=== PATIENT | male | born 1970 | race Caucasian/White ===

== ENCOUNTER 2021-01-13 11:53 | Emergency (ER) | payer OTHER, SELFPAY ==
--- NOTE | 2021-01-13 12:00 | USCV_ITS ---
Stanford Rouse Age: 50 Gender: M : 1970 Exam Date: 01/13/2021 12:12 Ordering Phys: Roma Bowman Technologist: Perla Alvarez Exam Location: [facility] [place] Indication: HIGH D-DIMER AND CRAMPS IN LT LEG HISTORY: High D-Dimer PROCEDURES: Venous duplex imaging was performed in only the left lower extremity. The following venous structures were evaluated: common femoral vein, profunda vein, proximal portion of the greater saphenous vein, superficial femoral vein, and the popliteal vein. In addition, the posterior tibial and peroneal trunk were evaluated. Serial compression, augmentation maneuvers, and spectral Doppler flow evaluation were performed. FINDINGS: Normal 2-D Doppler and augmentation and compressibility throughout the lower extremity venous structures. Additional imaging through the proximal calf veins also reveals no thrombus. Limited evaluation of the greater saphenous vein is patent with no thrombus.. CONCLUSIONS No evidence of left lower extremity DVT. Julian Waller MD (Electronically Signed) Final Date: 13 January 2021 17:44 S
[2021-01-13 12:47] VITALS: BP 132/76; PULSE 69; RESP 19; TEMP 37.3; O2SAT 95; BMI 34.0
[2021-01-13 13:42] LABS: Basophils # 0.1 10^3/uL (0.0-0.1); Basophils % 0.5 %; Eosinophils # 0.3 10^3/uL (0.0-0.8); Eosinophils % 3.6 %; Hematocrit 50.7 % (42.0-52.0); Hemoglobin 16.8 g/dL (11.7-16.6); Lymphocytes # 3.2 10^3/uL (0.8-4.8); Lymphocytes % 33.4 %; Mean Corpuscular HGB Conc 33.1 g/dL (30.0-36.0); Mean Corpuscular Hemoglobin 30.9 pg (28.0-34.0); Mean Corpuscular Volume 93.2 fL (80-94); Mean Platelet Volume 11.1 fL (7.4-10.4); Monocytes # 0.7 10^3/uL (0.2-0.9); Monocytes % 7.4 %; Neutrophils # 5.19 10^3/uL (1.8-7.7); Neutrophils % 54.8 %; Nucleated Red Blood Cells % 0 %; Platelet Count 276 10^3/cmm (130-400); Red Blood Count 5.44 10^6/uL (4.1-5.3); Red Cell Distribution Width 13.6 % (12.1-15.1); White Blood Count 9.5 10^3/uL (4.0-10.0)
[2021-01-13 13:47] LABS: INR 0.94 (0.8-1.2); Partial Thromboplastin Time 33.6 SECONDS (23.9-36.7)
[2021-01-13 14:01] LABS: Alanine Aminotransferase 38 U/L (0-41); Albumin Level 4.3 g/dL (3.5-5.2); Alkaline Phosphatase 95 IU/L (40-130); Aspartate Amino Transferase 23 U/L (0-40); Blood Urea Nitrogen 12 mg/dL (6-20); Calcium 8.6 mg/dL (8.5-10.5); Carbon Dioxide 19 mmol/L (22-29); Chloride 106 mmol/L (98-107); Globulin 3.2 g/dL (1.3-4.6); Glomerular Filtration Rate 143.2 mL/min (90-130); Glucose 90 mg/dL (65-115); Osmolality Calculated 283 mOsm/kg (285-295); Sodium 137 mmol/L (136-145); Total Bilirubin 0.3 mg/dL (0.15-1.2); Total Protein 7.5 g/dL (6.6-8.7)
[2021-01-13 14:09] LABS: Anion Gap 16.5 (5-19); Potassium 4.5 mmol/L (3.5-5.1)
--- NOTE | 2021-01-13 23:49 | ECG_ITS ---
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 Measurements Intervals [place] Rate: 55 P: 53 NV: 168 QRS: 45 QRSD: 93 T: 31 QT: 416 QTc: 401 Interpretive Statements SINUS BRADYCARDIA Compared to ECG 01/17/2015 04:54:34 Sinus rhythm no longer present Electronically Signed On 01-16-2021 7:45:48 CDT by Lexy Chatterjee M.D. [id number]
--- NOTE | 2021-01-13 23:50 | ED_ITS ---
HPI - SOB/Dyspnea General: Chief Complaint: Shortness of Breath/Dyspnea Stated Complaint: L leg pain, sob, Poss clot Time Seen by Provider: 01/13/21 23:39 History of Present Illness: HPI Narrative: Patient is a 50-year-old male comes to the ED due to an elevated D-dimer lab. Patient says infectious disease doctor who is been managing his [place] spotted fever disease checked a D-dimer level on him about a week ago and results showed it was elevated at 0.92. His doctor told him to go to the ED to be evaluated. Patient was complaining of just some mild left leg pain but has no other acute symptoms. He has chronic shortness of breath and says it has not gotten any worse or changed at all. The main reason patient came today was because of his elevated D-dimer. Patient is fully vaccinated for COVID-19, but he would like to be tested. Denies any fever, chills, chest pain, abdominal pain, nausea/vomiting, bladder or bowel symptoms. Associated symptoms: Deny abdominal pain, chest pain, fever(s), nausea, orthopnea, palpitations or vomiting Review of Systems Const: Denies: fever(s), chills or fatigue Eyes: Denies: change in vision or eye discomfort ENMT: Denies: throat pain, odynophagia, nasal discharge or nasal congestion Card: Denies: chest pain, palpitations, edema, swelling of feet/ankles, dyspnea on exertion or orthopnea Resp: Reports: dyspnea (chronic); Denies: productive cough or non-productive cough GI: Denies: abdominal pain, nausea, vomiting, diarrhea, constipation or hematochezia : Denies: flank pain, difficulty urinating, dysuria or hematuria Musc: Denies: neck pain, back pain or extremity swelling Skin/Breast: Denies: rash or new lesions Neuro: Denies: headache(s), numbness in extremities or weakness in extremities Physical Exam Const: COMMON NORMALS: no acute distress, patient oriented x3 and alert GENERAL APPEARANCE: cooperative and comfortable HENMT: COMMON NORMALS: normocephalic HEAD & SCALP: normocephalic MOUTH: Normal oral and palatal mucosa present THROAT: posterior oropharynx normal and uvula midline Eye: COMMON NORMALS: Equal, round and reactive pupils present PUPIL: Yes Equal, round and reactive pupils present Neck/C-Spine: COMMON NORMALS: supple GENERAL: Yes normal visual inspection Resp: COMMON NORMALS: normal respiratory effort, No retractions, No use of accessory muscles and clear to auscultation bilaterally EFFORT & INSPECTION: Yes able to speak in complete sentences, No tachypneic, No respiratory distress and No labored AUSCULTATION: clear to auscultation bilaterally Cardio: COMMON NORMALS: regular rate, regular rhythm, S1 normal heart sound present, S2 normal heart sound present, No gallops present (Cardio), No clicks present (Cardio), No murmurs present (Cardio) and Peripheral pulses 2+ throughout RATE: regular rate RHYTHM: regular rhythm HEART SOUNDS: S1 normal heart sound present and S2 normal heart sound present PERIPHERAL PULSES: Peripheral pulses 2+ throughout GI: COMMON NORMALS: Normal to inspection, nondistended, normoactive bowel sounds present, Soft to palpation, non-tender and no masses PALPATION: Yes Soft to palpation : COMMON NORMALS: Yes no CVA tenderness BLADDER/KIDNEY EXAM: Yes no CVA tenderness Back/Pelvis: COMMON NORMALS: no CVA tenderness Extremity: COMMON NORMALS: normal to inspection Neuro: COMMON NORMALS: patient oriented x3 and moves all extremities SENSORIUM/ORIENTATION: Yes alert Skin: GENERAL SKIN EXAM: dry skin Course Vital Signs: Vital signs: Vital Signs Temperature 99.2 F 01/13/21 12:47 Pulse Rate 53 L 01/14/21 02:47 Respiratory Rate 18 01/14/21 02:47 Blood Pressure 120/87 01/14/21 02:47 Pulse Oximetry 98 01/14/21 02:47 MDM - SOB/Dyspnea MDM Narrative: Medical decision making narrative: Patient is a 50-year-old male who was told to come to the ED by his doctor because he had an elevated D- dimer (0.92) lab a couple days ago. Patient has a past medical history of [place] spotted fever. patient says he has some mild left leg pain but is otherwise asymptomatic. Denies chest pain or hemoptysis. He does report that he has some chronic shortness of breath but denies any worsening or acute change in symptoms. Patient appears nontoxic and in no acute distress. Exam is benign and lungs are clear to auscultation bilaterally. Vitals are stable. D-dimer elevated at 1.31. Covid negative. The rest of the labs were unremarkable. C hest x-ray showed no acute findings. Venous duplex of left lower extremity showed no DVTs or blood clots. EKG was unremarkable. CTA of chest showed no PE and no other acute findings. Patient diagnosed with elevated D-dimer and discharged home. He was told to follow-up with his PCP in a week for reevaluation. Return to ED precautions given. Patient understood agree with plan. Lab Data: Attestation: I reviewed the patient's lab results. Labs: Lab Results 01/13/21 01/13/21 01/13/21 Range/Units 13:27 13:27 13:27 WBC 9.5 (4.0-10.0) 10^3/ uL RBC 5.44 H (4.1-5.3) 10^6/u L Hgb 16.8 H (11.7-16.6) g/dL Hct 50.7 (42.0-52.0) % MCV 93.2 (80-94) fL MCH 30.9 (28.0-34.0) pg MCHC 33.1 (30.0-36.0) g/dL RDW 13.6 (12.1-15.1) % Plt Count 276 (130-400) 10^3/c mm MPV 11.1 H (7.4-10.4) fL Neut % (Auto) 54.8 % Lymph % (Auto) 33.4 % Bond % (Auto) 7.4 % Eos % (Auto) 3.6 % Baso % (Auto) 0.5 % Neut # (Auto) 5.19 (1.8-7.7) 10^3/u L Lymph # (Auto) 3.2 (0.8-4.8) 10^3/u L Bond # (Auto) 0.7 (0.2-0.9) 10^3/u L Eos # (Auto) 0.3 (0.0-0.8) 10^3/u L Baso # (Auto) 0.1 (0.0-0.1) 10^3/u L Nucleated RBC % (a uto) 0 % Nucleated RBCs # 0.0 /100WBC PT 12.90 (12.1-14.9) SECO NDS INR 0.94 (0.8-1.2) APTT 33.6 (23.9-36.7) SECO NDS D-Dimer (0-0.59) ug/mIFE U Sodium 137 (136-145) mmol/L Potassium 4.5 (3.5-5.1) mmol/L Chloride 106 (98-107) mmol/L Carbon Dioxide 19 L (22-29) mmol/L Anion Gap 16.5 (5-19) BUN 12 (6-20) mg/dL Creatinine 0.6 L (0.7-1.2) mg/dL GFR Calculation 143.2 H (90-130) mL/min Glucose 90 (65-115) mg/dL Calculated Osmolal ity 283 L (285-295) mOsm/k g Calcium 8.6 (8.5-10.5) mg/dL Total Bilirubin 0.3 (0.15-1.2) mg/dL AST 23 (0-40) U/L ALT 38 (0-41) U/L Alkaline Phosphata se 95 (40-130) IU/L Total Protein 7.5 (6.6-8.7) g/dL Albumin 4.3 (3.5-5.2) g/dL Globulin 3.2 (1.3-4.6) g/dL SARS-CoV-2 Ag (Rap id) (Negative) 01/14/21 01/14/21 Range/Units 00:55 01:04 WBC (4.0-10.0) 10^3/ uL RBC (4.1-5.3) 10^6/u L Hgb (11.7-16.6) g/dL Hct (42.0-52.0) % MCV (80-94) fL MCH (28.0-34.0) pg MCHC (30.0-36.0) g/dL RDW (12.1-15.1) % Plt Count (130-400) 10^3/c mm MPV (7.4-10.4) fL Neut % (Auto) % Lymph % (Auto) % Bond % (Auto) % Eos % (Auto) % Baso % (Auto) % Neut # (Auto) (1.8-7.7) 10^3/u L Lymph # (Auto) (0.8-4.8) 10^3/u L Bond # (Auto) (0.2-0.9) 10^3/u L Eos # (Auto) (0.0-0.8) 10^3/u L Baso # (Auto) (0.0-0.1) 10^3/u L Nucleated RBC % (a uto) % Nucleated RBCs # /100WBC PT (12.1-14.9) SECO NDS INR (0.8-1.2) APTT (23.9-36.7) SECO NDS D-Dimer 1.31 H (0-0.59) ug/mIFE U Sodium (136-145) mmol/L Potassium (3.5-5.1) mmol/L Chloride (98-107) mmol/L Carbon Dioxide (22-29) mmol/L Anion Gap (5-19) BUN (6-20) mg/dL Creatinine (0.7-1.2) mg/dL GFR Calculation (90-130) mL/min Glucose (65-115) mg/dL Calculated Osmolal ity (285-295) mOsm/k g Calcium (8.5-10.5) mg/dL Total Bilirubin (0.15-1.2) mg/dL AST (0-40) U/L ALT (0-41) U/L Alkaline Phosphata se (40-130) IU/L Total Protein (6.6-8.7) g/dL Albumin (3.5-5.2) g/dL Globulin (1.3-4.6) g/dL SARS-CoV-2 Ag (Rap id) Negative (Negative) Imaging Data^: US Vascular: Attestation: I personally reviewed and interpreted this imaging study as follows: Radiologist's impression: [address] [address]Sqxmlaqelc ReportSigned Patient: Stanford Rouse JrUnit #: [id number]: 02/24Acct#:[id number]/Sex: 50 / MADM Date: 01/13/21Loc: ERRoom/Bed:Attending Dr: Ordering Provider/Ordering MD: Roma Bowman Date of Service: 01/13/21 Procedure(s): [place] [address] Accession Number(s): [id number] Report Number: [id number] Stanford Rouse Age: 50 Gender: M : 1970 Exam Date: 01/13/2021 12:12 Ordering Phys: Roma Bowman Technologist: Perla Alvarze [place] [facility] [place] [facility] [place]ication: HIGH D-DIMER AND CRAMPS IN LT LEG HISTORY: High D-Dimer PROCEDURES: Venous duplex imaging was performed in only the left lower extremity. The following venous structures were evaluated: common femoral vein, profunda vein, proximal portion of the greater saphenous vein, superficial femoral vein, and the popliteal vein. In addition, the posterior tibial and peroneal trunk were evaluated. Serial compression, augmentation maneuvers, and spectral Doppler flow evaluation were performed. FINDINGS: Normal 2-D Doppler and augmentation and compressibility throughout the lower extremity venous structures. Additional imaging through the proximal calf veins also reveals no thrombus. Limited evaluation of the greater saphenous vein is patent with no thrombus.. CONCLUSIONS No evidence of left lower extremity DVT. Julian Waller MD (Electronically Signed) Final Date: 13 January 2021 17:44 CXR: Attestation: I personally reviewed and interpreted this imaging study as follows: Radiologist's impression: [address] [address] XRay Report Signed Patient: Stanford Rouse Unit #: [id number] : 1970 Age/Sex: 50 / M ADM Date: 01/13/21 Loc: ER Room/Bed: Attending Dr: Ordering Provider/Ordering MD: Alfonso Minor Date of Service: 01/13/21 Procedure(s): XR chest 1V portable [id number] Accession Number(s): [id number] Report Number: [id number] PROCEDURE INFORMATION: Exam: XR Chest Exam date and time: 01/13/2021 11:55 PM Age: 50 years old Clinical indication: Dyspnea; Additional info: SOB TECHNIQUE: Imaging protocol: XR of the chest. Views: 1 view. COMPARISON: [facility] Chest 2 views 03/30/2018 12:34 PM FINDINGS: Lungs: No CHF/pulmonary edema. Visible lungs appear essentially clear. Pleural spaces: No visible pneumothorax. No definite pleural fluid. Heart/Mediastinum: Heart size is borderline/mildly enlarged. Bones/joints: No significant acute finding. XR/XR chest 1V portable [id number] IMPRESSION: 1. No definite CHF or pneumonia. 2. Other findings discussed above. Dictated By: Tanner Bryan MD Signed By: Tanner Bryan MD Signed Date/Time: 01/14/21136 DD/ 5 CTA Chest: Attestation: I personally reviewed and interpreted this imaging study as follows: Radiologist's impression: [employer] [address] [address] [address] Scan Report Signed Patient: Stanford Rouse Jr Unit #: [id number] : 1970 Age/Sex: 50 / M ADM Date: 01/13/21 Loc: ER Room/Bed: Attending Dr: Ordering Provider/Ordering MD: Alfonso Minor Date of Service: 01/14/21 Procedure(s): CT angio chest PE protcl [id number] Accession Number(s): [id number] Report Number: [id number] PROCEDURE INFORMATION: Exam: CTA Chest With Contrast Exam date and time: 01/14/2021 1:47 AM Age: 50 years old Clinical indication: Dyspnea; Additional info: SOB, elevated d-dimer TECHNIQUE: Imaging protocol: Computed tomographic angiography of the chest with contrast. 3D rendering (Not supervised by radiologist): MIP and/or 3D reconstructed images were created by the technologist. Radiation optimization: All CT scans at this facility use at least one of these dose optimization techniques: automated exposure control; mA and/or kV adjustment per patient size (includes targeted exams where dose is matched to clinical indication); or iterative reconstruction. Contrast material: OMNI 350; Contrast volume: 95 ml; Contrast route: INTRAVENOUS (IV); COMPARISON: CR (CHEST, ) 01/14/2021 12:12 AM RADIATION DOSE METRICS: Total DLP (mGy-cm): 674.14 FINDINGS: Pulmonary arteries: No definite filling defect to suggest the diagnosis of acute pulmonary embolus. Aorta: No evidence of thoracic aortic dissection or focal aneurysm. Lungs: No significant parenchymal lung opacity or mass. Pleural spaces: No pleural fluid. Heart: No significant pericardial effusion. Mediastinal space: No evidence for pneumomediastinum or pneumothorax. Lymph nodes: No significant hilar or mediastinal lymphadenopathy. Gallbladder and bile ducts: Suspect a very small calcified gallstone visible within the gallbladder. Ultrasound would be more specific/sensitive for detecting gallstones, if clinically needed. No other definite gallbladder abnormality by CT. No biliary tree dilation. Images that include the upper abdomen otherwise appear essentially unremarkable for age. Bones/joints: Mild degenerative disc changes throughout the thoracic spine. Soft tissues: No significant acute finding. CT/CT angio chest PE protcl [id number] IMPRESSION: 1. No evidence of acute pulmonary embolus. 2. No evidence of thoracic aortic dissection or focal aneurysm. 3. Clear lungs, no evidence for pneumonia or CHF. 4. No pleural fluid. 5. Possible cholelithiasis, see above. 6. Other findings discussed above. Radiation Dose CTDIVOL = (mGy): DLP = 674.14 (mGy-cm) Dictated By: Tanner Bryan MD Signed By: Tanner Bryan MD Signed Date/Time: 01/14/21247 DD/ 5 EKG Data^: EKG 1: Attestation: I personally reviewed and interpreted this EKG as follows: EKG Interpretation Date: 01/14/21 Interpretation: Sinus bradycardia, 55 bpm, no ST segment elevation or depression seen. Discharge Plan Discharge Patient Disposition: Home Clinical Impression: D-dimer, elevated Condition: Stable Discharge Orders: Discharge ED (Routine); Ordered 01/14/21 Ordered By: Alfonso Minor Referrals: DREW FINNEY MD [Primary Care Provider] - Discharge Diet: Regular Discharge Activity: Increase activity as tolerated Activity Restrictions/Additional Instructions: Follow-up with medical provider as directed in 7 days for reevaluation. Continue taking all home medications as prescribed. Return to the ER or your medical provider if condition worsens. Please read and understand discharge instructions. Thank you for choosing [facility] for your healthcare needs today. Please realize this is an emergency room and that we are providing you with a medical screening exam and this may not be complete and all inclusive of all the testing and or work up that you may need to determine your ailment or severity of your illness. It is very important that you follow up as instructed or that you return to the Emergency Department should you have concerns or if your condition changes or worsens in any way. Coding Level of Care Code ED Crew Leader Gluing for Ale Lara Exam Comprehensive
--- NOTE | 2021-01-13 23:55 | XRR_ITS ---
PROCEDURE INFORMATION: Exam: XR Chest Exam date and time: 01/13/2021 11:55 PM Age: 50 years old Clinical indication: Dyspnea; Additional info: SOB TECHNIQUE: Imaging protocol: XR of the chest. Views: 1 view. COMPARISON: [facility] Chest 2 views 03/30/2018 12:34 PM FINDINGS: Lungs: No CHF/pulmonary edema. Visible lungs appear essentially clear. Pleural spaces: No visible pneumothorax. No definite pleural fluid. Heart/Mediastinum: Heart size is borderline/mildly enlarged. Bones/joints: No significant acute finding. XR/XR chest 1V portable [id number] IMPRESSION: 1. No definite CHF or pneumonia. 2. Other findings discussed above.
[2021-01-14 01:00] VITALS: BP 118/76; PULSE 52; RESP 18; O2SAT 97
[2021-01-14 01:27] LABS: D Dimer 1.31 ug/mIFEU (0-0.59)
[2021-01-14 01:30] LABS: SARS Covid-2 Antigen Negative (Negative)
--- NOTE | 2021-01-14 01:47 | CTR_ITS ---
PROCEDURE INFORMATION: Exam: CTA Chest With Contrast Exam date and time: 01/14/2021 1:47 AM Age: 50 years old Clinical indication: Dyspnea; Additional info: SOB, elevated d-dimer TECHNIQUE: Imaging protocol: Computed tomographic angiography of the chest with contrast. 3D rendering (Not supervised by radiologist): MIP and/or 3D reconstructed images were created by the technologist. Radiation optimization: All CT scans at this facility use at least one of these dose optimization techniques: automated exposure control; mA and/or kV adjustment per patient size (includes targeted exams where dose is matched to clinical indication); or iterative reconstruction. Contrast material: OMNI 350; Contrast volume: 95 ml; Contrast route: INTRAVENOUS (IV); COMPARISON: CR (CHEST, ) 01/14/2021 12:12 AM RADIATION DOSE METRICS: Total DLP (mGy-cm): 674.14 FINDINGS: Pulmonary arteries: No definite filling defect to suggest the diagnosis of acute pulmonary embolus. Aorta: No evidence of thoracic aortic dissection or focal aneurysm. Lungs: No significant parenchymal lung opacity or mass. Pleural spaces: No pleural fluid. Heart: No significant pericardial effusion. Mediastinal space: No evidence for pneumomediastinum or pneumothorax. Lymph nodes: No significant hilar or mediastinal lymphadenopathy. Gallbladder and bile ducts: Suspect a very small calcified gallstone visible within the gallbladder. Ultrasound would be more specific/sensitive for detecting gallstones, if clinically needed. No other definite gallbladder abnormality by CT. No biliary tree dilation. Images that include the upper abdomen otherwise appear essentially unremarkable for age. Bones/joints: Mild degenerative disc changes throughout the thoracic spine. Soft tissues: No significant acute finding. CT/CT angio chest PE protcl [id number] IMPRESSION: 1. No evidence of acute pulmonary embolus. 2. No evidence of thoracic aortic dissection or focal aneurysm. 3. Clear lungs, no evidence for pneumonia or CHF. 4. No pleural fluid. 5. Possible cholelithiasis, see above. 6. Other findings discussed above. Radiation Dose CTDIVOL = (mGy): DLP = 674.14 (mGy-cm)
[2021-01-14] MEDS: iohexol 350 mg/mL 100 mL Btl IV (02:11)
[2021-01-14 02:47] VITALS: BP 120/87; PULSE 53; RESP 18; O2SAT 98
[2021-01-14 03:04] VITALS: BP 133/74; PULSE 56; RESP 20; O2SAT 96
== END 2021-01-14 03:05 | disposition home or self-care (01) ==
PROVIDERS: Physician Assistant; Emergency Provider Physician Assistant; PCP Internal Medicine
DX: R79.89 Other specified abnormal findings of blood chemistry (principal)
CPT/HCPCS: 36415; 71045; 71275; 80053; 85025; 85378; 85610; 85730; 87426; 93005; 93971; 99284; Q9967

== ENCOUNTER → 2021-07-14 14:04 | Outpatient (BNVA) | payer OTHER, SELFPAY | PROVIDERS: PCP Internal Medicine; Visit Provider Podiatrist Foot & Ankle Surgery | DX: M19.072 Primary osteoarthritis, left ankle and foot (principal); M19.071 Primary osteoarthritis, right ankle and foot; M79.671 Pain in right foot; M79.672 Pain in left foot | CPT/HCPCS: 73630 ==

== ENCOUNTER 2021-07-14 15:04 | Outpatient (CLI) | payer OTHER, SELFPAY | END 2021-07-14 15:05 | disposition home or self-care (01) | LOC: SPT 15:05 | PROVIDERS: PCP Internal Medicine; Visit Provider Podiatrist Foot & Ankle Surgery | DX: Z46.89 Encounter for fitting and adjustment of other specified devices (principal); M72.2 Plantar fascial fibromatosis | CPT/HCPCS: 97760; L4397 ==

== ENCOUNTER 2023-02-12 05:35 | Emergency (ER) | payer OTHER, SELFPAY ==
[2023-02-12 05:40] VITALS: BP 142/89; PULSE 81; RESP 16; TEMP 36.6; O2SAT 96; BMI 32.7
[2023-02-12 05:45] VITALS: BP 134/82; PULSE 77; RESP 27; O2SAT 94
--- NOTE | 2023-02-12 05:46 | ECG_ITS ---
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 Measurements Intervals [place] Rate: 79 P: 41 AL: 165 QRS: 17 QRSD: 81 T: 34 QT: 351 QTc: 402 Interpretive Statements SINUS RHYTHM POSSIBLE LEFT ATRIAL ENLARGEMENT [-0.1mV P-WAVE IN V1/V2] Compared to ECG 01/14/2021 00:00:47 Sinus bradycardia no longer present Electronically Signed On 02-12-2023 17:20:27 CDT by Traci Mckeon M.D. [id number]
--- NOTE | 2023-02-12 05:46 | XRR_ITS ---
PROCEDURE INFORMATION: Exam: XR Chest Exam date and time: 02/12/2023 6:06 AM Age: 52 years old Clinical indication: Pain; Chest pressure; Additional info: Chest pain TECHNIQUE: Imaging protocol: Radiologic exam of the chest. Views: 1 view. Other technique: Frontal portable view of the chest. COMPARISON: CR XR chest 1V portable [id number] 01/14/2021 12:12 AM FINDINGS: Tubes, catheters and devices: EKG leads are present overlying the chest. Lungs: The lungs are clear bilaterally. The pulmonary vasculature is normal. Pleural spaces: No pleural effusion. No pneumothorax. Heart/Mediastinum: The heart is normal in size and contour. Mediastinum: Stable. Bones/joints: Stable. XR/XR chest 1V portable [id number] IMPRESSION: No acute cardiopulmonary abnormality identified.
[2023-02-12 05:56] LABS: Basophils % 0.5 %; Eosinophils # 0.3 10^3/uL (0.0-0.8); Eosinophils % 3.2 %; Hematocrit 52.3 % (37-53); Lymphocytes % 36.8 %; Mean Corpuscular HGB Conc 33.8 g/dL (30-55); Mean Corpuscular Hemoglobin 30.3 pg (27-33); Mean Corpuscular Volume 89.6 fl (82-101); Mean Platelet Volume 10.5 fL (7.4-10.4); Monocytes # 0.8 10^3/uL (0.2-0.9); Monocytes % 9.6 %; Neutrophils # 4.02 10^3/uL (1.8-7.7); Neutrophils % 49.4 %; Nucleated Red Blood Cells % 0 %; Platelet Count 296 10^3/cmm (157-399); Red Blood Count 5.84 10^6/uL (3.85-5.65); Red Cell Distribution Width 13.6 % (12.1-15.1); White Blood Count 8.13 10^3/uL (3.29-11.43)
[2023-02-12 06:00] VITALS: BP 116/70; PULSE 67; RESP 18; O2SAT 94
--- NOTE | 2023-02-12 06:07 | ED_ITS ---
HPI - Chest Pain General: Chief Complaint: Chest Pain Stated Complaint: SOB\Swell Arms and Hands\Chest Pains Time Seen by Provider: 02/12/23 05:46 Source: patient Mode of arrival: ambulatory History of Present Illness: 52-year-old male presents emergency room complaining of chest pain swelling of his arms and legs and some mild shortness of breath. He had a D-dimer done as an outpatient recently in another facility was elevated he was told to come to the emergency room if he had continued shortness of breath. Late in the visit patient stated that he had tested positive for COVID 9 days ago. His cough is improved but he continues to have myalgias and shortness of breath. Some mild chest discomfort accompanying this as well. MD complaint: chest heaviness and chest discomfort Onset (ago): day(s) Timing of current episode: episodic Prior episodes: Yes Onset: during rest Pain location: substernal Severity: mild Quality: tightness, aching and heaviness Relieving factors: nothing Exacerbating factors: nothing Associated symptoms: Reports dyspnea; Deny abdominal pain, diaphoresis, fever(s), leg edema, nausea, palpitations, sense of impending doom, syncope or vomiting Treatment prior to arrival: none Review of Systems Const: Denies: fever(s) or diaphoresis ENMT: Denies: throat pain, ear or mastoid pain, nasal discharge or nasal congestion Card: Reports: chest pain and edema; Denies: palpitations, irregular heart rhythm or syncope Resp: Reports: dyspnea; Denies: productive cough or non-productive cough GI: Denies: abdominal pain, nausea or vomiting : Denies: flank pain, dysuria, urinary frequency or urinary urgency Skin/Breast: Denies: rash or pruritus PFSH ED PFSH: Social History Smoking and tobacco status: current some day smoker Physical Exam Const: GENERAL APPEARANCE: cooperative and comfortable ORIENTATION/CONSCIOUSNESS: Yes awake, Yes oriented to person, Yes oriented to place and Yes oriented to time HENMT: COMMON NORMALS: normocephalic, atraumatic and hearing grossly normal bilaterally HEAD & SCALP: normocephalic and atraumatic Resp: COMMON NORMALS: normal respiratory effort, No retractions, No use of accessory muscles and clear to auscultation bilaterally AUSCULTATION: clear to auscultation bilaterally Cardio: COMMON NORMALS: regular rate, regular rhythm and No murmurs present (Cardio) RATE: regular rate RHYTHM: regular rhythm GI: COMMON NORMALS: Soft to palpation and No hepatosplenomegaly present AUSCULTATION: Yes normoactive bowel sounds PALPATION: Yes Soft to palpation, No Tenderness to palpation present (GI), No Guarding due to palpation present (GI) and Yes No hepatosplenomegaly present Extremity: COMMON NORMALS: normal to inspection, capillary refill normal, no clubbing, cyanosis or edema, no calf tenderness and no pedal edema Neuro: SENSORIUM/ORIENTATION: Yes oriented to person, Yes oriented to place and Yes oriented to time Skin: COMMON NORMALS: no rashes or lesions noted GENERAL SKIN EXAM: no rashes or lesions noted Course Vital Signs: Vital signs: Vital Signs Temperature 97.9 F 02/12/23 05:40 Pulse Rate 58 L 02/12/23 08:45 Respiratory Rate 18 02/12/23 08:45 Blood Pressure 125/75 02/12/23 08:45 Pulse Oximetry 98 02/12/23 08:45 Oxygen Delivery Me thod Room Air 02/12/23 08:45 MDM - Chest Pain Medical Decision Making Serial cardiac enzymes EKG did not show any acute changes no acute ST elevation delta Trope was not positive. D-dimer remained elevated venous duplex lower extremities and CTA of the chest are negative chest x-ray unremarkable I think all of his symptoms including his laboratory abnormalities are attributable to the recent COVID diagnosis. Symptomatic care follow-up with his primary care doctor Medical Records I reviewed the patient's medical records. Lab Data I reviewed the patient's lab results. 02/12/23 05:48 02/12/23 05:48 Radiology Impressions Chest X-Ray 02/12/23 05:46 IMPRESSION: No acute cardiopulmonary abnormality identified. Laboratory Results WBC 8.13 10^3/uL (3.29-11.43) 02/12/23 05:48 RBC 5.84 10^6/uL (3.85-5.65) H 02/12/23 05:48 Hgb 17.70 g/dL (11.27-16.99) H 02/12/23 05:48 Hct 52.3 % (37-53) 02/12/23 05:48 MCV 89.6 fl (82-101) 02/12/23 05:48 MCH 30.3 pg (27-33) 02/12/23 05:48 MCHC 33.8 g/dL (30-55) 02/12/23 05:48 RDW 13.6 % (12.1-15.1) 02/12/23 05:48 Plt Count 296 10^3/cmm (157-399) 02/12/23 05:48 MPV 10.5 fL (7.4-10.4) H 02/12/23 05:48 Neut % (Auto) 49.4 % 02/12/23 05:48 Lymph % (Auto) 36.8 % 02/12/23 05:48 [place] % (Auto) 9.6 % 02/12/23 05:48 Eos % (Auto) 3.2 % 02/12/23 05:48 Baso % (Auto) 0.5 % 02/12/23 05:48 Neut # (Auto) 4.02 10^3/uL (1.8-7.7) 02/12/23 05:48 Lymph # (Auto) 3.0 10^3/uL (0.8-4.8) 02/12/23 05:48 [place] # (Auto) 0.8 10^3/uL (0.2-0.9) 02/12/23 05:48 Eos # (Auto) 0.3 10^3/uL (0.0-0.8) 02/12/23 05:48 Baso # (Auto) 0.0 10^3/uL (0.0-0.1) 02/12/23 05:48 Nucleated RBC % (auto) 0 % 02/12/23 05:48 Nucleated RBCs # 0.0 /100WBC 02/12/23 05:48 PT 13.60 SECONDS (12.1-14.9) 02/12/23 05:48 INR 1.01 (0.8-1.2) 02/12/23 05:48 D-Dimer 2.14 ug/mLFEU (0-0.59) H 02/12/23 05:48 Sodium 136 mmol/L (136-145) 02/12/23 05:48 Potassium 4.1 mmol/L (3.5-5.1) 02/12/23 05:48 Chloride 102 mmol/L (98-107) 02/12/23 05:48 Carbon Dioxide 20 mmol/L (22-29) L 02/12/23 05:48 Anion Gap 18.1 (5-19) 02/12/23 05:48 BUN 10 mg/dL (6-20) 02/12/23 05:48 Creatinine 0.8 mg/dL (0.7-1.2) 02/12/23 05:48 GFR Calculation 101.9 mL/min (90-130) 02/12/23 05:48 Glucose 243 mg/dL (65-115) H 02/12/23 05:48 Calculated Osmolality 289 mOsm/kg (285-295) 02/12/23 05:48 Calcium 8.8 mg/dL (8.5-10.5) 02/12/23 05:48 Total Bilirubin 0.5 mg/dL (0.15-1.2) 02/12/23 05:48 AST 29 U/L (0-40) 02/12/23 05:48 ALT 47 U/L (0-41) H 02/12/23 05:48 Alkaline Phosphatase 101 U/L (40-130) 02/12/23 05:48 Troponin T Baseline 8 ng/L (0-15) 02/12/23 05:48 Troponin T 120 Minute 8.02 ng/L (0-15) 02/12/23 08:15 Delta Troponin T 0.02 ABS# (0-10) 02/12/23 08:15 Total Protein 7.2 g/dL (6.6-8.7) 02/12/23 05:48 Albumin 4.5 g/dL (3.5-5.2) 02/12/23 05:48 Globulin 2.7 g/dL (1.3-4.6) 02/12/23 05:48 Discharge Plan Discharge Patient Disposition: Home Clinical Impression: Atypical chest pain, COVID-19 Condition: Stable Prescriptions: No Action (DME) Night Splint See Rx Instructions .Route .MEDSUPPLY Qty: 1 0RF Rx Instructions: As directed zinc acetate 50 mg (zinc) Capsule 50 mg PO DAILY DHEA 25 mg Tablet 25 mg PO DAILY prednisone 20 mg tablet 20 mg PO DAILY PRN (Reason: SWELLING) Aspir-81 81 mg Tablet,Delayed Release (Dr/Ec) 81 mg PO DAILY testosterone cypionate 200 mg/mL oil See Rx Instructions .ROUTE .COMPLEX Rx Instructions: DIRECTED magnesium 200 mg Tablet 200 mg PO DAILY Zyrtec 10 mg Capsule 10 mg PO DAILY Alive Men's 50 Plus Multivit 120 mcg-150 mcg -50 mg Tablet,Chewable 1 tab PO DAILY Daily Probiotic (4 Strains) 11 billion cell -15 mg Capsule 1 cap PO DAILY Discharge Orders: Discharge ED (Routine); Ordered 02/12/23 Ordered By: Luiz Turk Referrals: DREW FINNEY MD [Primary Care Provider] - Discharge Diet: Usual diet Discharge Activity: Increase activity as tolerated Patient Instructions: COVID-19 (Coronavirus Disease 2019) (ED), Opioid Safety, Pain Management Coding Level of Care Code ED 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
[2023-02-12 06:08] LABS: INR 1.01 (0.8-1.2)
[2023-02-12 06:15] LABS: Troponin(5th) Baseline 8 ng/L (0-15)
[2023-02-12 06:17] LABS: Alanine Aminotransferase 47 U/L (0-41); Albumin Level 4.5 g/dL (3.5-5.2); Alkaline Phosphatase 101 U/L (40-130); Anion Gap 18.1 (5-19); Aspartate Amino Transferase 29 U/L (0-40); Blood Urea Nitrogen 10 mg/dL (6-20); Calcium 8.8 mg/dL (8.5-10.5); Carbon Dioxide 20 mmol/L (22-29); Chloride 102 mmol/L (98-107); Globulin 2.7 g/dL (1.3-4.6); Glomerular Filtration Rate 101.9 mL/min (90-130); Glucose 243 mg/dL (65-115); Osmolality Calculated 289 mOsm/kg (285-295); Potassium 4.1 mmol/L (3.5-5.1); Sodium 136 mmol/L (136-145); Total Bilirubin 0.5 mg/dL (0.15-1.2); Total Protein 7.2 g/dL (6.6-8.7)
[2023-02-12 06:19] LABS: D Dimer 2.14 ug/mLFEU (0-0.59)
--- NOTE | 2023-02-12 06:28 | USCV_ITS ---
Stanford Rouse Age: 52 Gender: M : 1970 Exam Date: 02/12/2023 07:34 Ordering Phys: Luiz Turk DO Technologist: Frank Estrada [place] [facility] [place]: [place] d dimer PROCEDURES: Venous duplex imaging was performed in bilateral lower extremities. The following venous structures were evaluated: common femoral vein, profunda vein, proximal portion of the greater saphenous vein, superficial femoral vein, and the popliteal vein. In addition, the posterior tibial and peroneal trunk were evaluated. Serial compression, augmentation maneuvers, and spectral Doppler flow evaluation were performed. FINDINGS: Normal 2-D Doppler and augmentation and compressibility throughout the lower extremity venous structures. Additional imaging through the proximal calf veins also reveals no thrombus. Limited evaluation of the greater saphenous vein is patent with no thrombus. CONCLUSIONS No evidence of right lower extremity DVT. No evidence of left lower extremity DVT. Julian Waller MD (Electronically Signed) Final Date: 12 February 2023 09:29 S
--- NOTE | 2023-02-12 06:28 | CT_ITS ---
WS: [id number] CT CHEST ANGIOGRAPHY WITH REFORMATS HISTORY: dyspnea TECHNIQUE: Contiguous axial images are obtained through the chest during arterial injection of intrav enous contrast. Images are reconstructed to evaluate the pulmonary arteries. MIP imaging also reviewe d. All CT scans at [facility] use at least one of these dose optimization techniques: automat ed exposure control; mA and/or kV adjustment per patient size (includes targeted exams where dose is matched to clinical indication); or iterative reconstruction. CONTRAST: Omnipaque 350; 100 mL IV. DLP: 545.74 mGy.cm COMPARISON: 01/14/2021 Good opacification of the pulmonary arteries. No filling defects or pulmonary emboli identified. Norm al thoracic aorta. Heart size is normal. There is no RIGHT heart strain. No pericardial or pleural ef fusions. Pulmonary vasculature is very slightly prominent. No pneumonia. Mildly prominent interstitiu m. No effusions. New enlarged hilar lymph nodes. Hilar lymph nodes measure up to 2.0 cm. Subcarinal l ymph node at 1.7 cm. Small paratracheal lymph nodes. No axillary nodes. Small hiatal hernia. Pac steatosis. No adrenal mass. IMPRESSION: 1. No pulmonary embolism. 2. No pneumonia. Component of mild pneumonitis versus edema likely. 3. New hilar lymphadenopathy. Largest lymph nodes measures 2.0 cm. This could be reactive response or early neoplastic response. Suggest follow-up chest CT with IV contrast in 3 months. Notified Luiz Turk DO at 02/12/2023 8:22 AM.
[2023-02-12] MEDS: iohexol 350 mg/mL 500 mL Btl (per mL) IV (07:00)
--- NOTE | 2023-02-12 07:46 | ECG_ITS ---
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 Measurements Intervals [place] Rate: 57 P: 13 OR: 163 QRS: 16 QRSD: 86 T: 29 QT: 406 QTc: 397 Interpretive Statements SINUS BRADYCARDIA Compared to ECG 01/14/2021 00:00:47 No significant changes Electronically Signed On 02-12-2023 17:22:15 CDT by Traci Mckeon M.D. [id number]
[2023-02-12 08:45] VITALS: BP 125/75; PULSE 58; RESP 18; O2SAT 98
[2023-02-12 08:48] LABS: Troponin 5 2HR 8.02 ng/L (0-15); Troponin 5 2HR Delta 0.02 ABS# (0-10)
[2023-02-12 10:47] LABS: Adenovirus Not Detected (NOT DETECT); Chlamydia Pneumoniae Not Detected (NOT DETECT); Coronavirus 229E,HKU1,NL63,OC4 Not Detected (NOT DETECT); Human Metapneumovirus Not Detected (NOT DETECT); Human Rhinovirus/Enterovirus Not Detected (NOT DETECT); Influenza A Not Detected (NOT DETECT); Influenza A H1 Not Detected (NOT DETECT); Influenza A H1-2009 Not Detected (NOT DETECT); Influenza A H3 Not Detected (NOT DETECT); Influenza B Not Detected (NOT DETECT); Mycoplasma Pneumoniae Not Detected (NOT DETECT); Parainfluenza Virus Type 1 Not Detected (NOT DETECT); Parainfluenza Virus Type 2 Not Detected (NOT DETECT); Parainfluenza Virus Type 3 Not Detected (NOT DETECT); Parainfluenza Virus Type 4 Not Detected (NOT DETECT); Respiratory Syncytial Virus A Not Detected (NOT DETECT); Respiratory Syncytial Virus B Not Detected (NOT DETECT); SARS-COV-2 Not Detected (NOT DETECT)
== END 2023-02-12 09:19 | disposition home or self-care (01) ==
PROVIDERS: Emergency Medicine; Emergency Provider Family Medicine; PCP Internal Medicine
DX: R07.89 Other chest pain (principal); U07.1 COVID-19; Z79.82 Long term (current) use of aspirin; F17.210 Nicotine dependence, cigarettes, uncomplicated
CPT/HCPCS: 36415; 71045; 71275; 80053; 84484; 85025; 85378; 85610; 87635; 93005; 93970; 99285; Q9967